=== PATIENT | female | born 1995 | race Caucasian/White ===

== ENCOUNTER 2022-10-28 12:37 | Outpatient (REF) | payer MEDICAID, SELFPAY | END 2022-10-28 12:38 | disposition home or self-care (01) | LOC: HO.MDS 12:37 | PROVIDERS: Visit Provider Internal Medicine | DX: O99.013 Anemia complicating pregnancy, third trimester (principal); D50.9 Iron deficiency anemia, unspecified; Z3A.28 28 weeks gestation of pregnancy | CPT/HCPCS: 96365 ==

== ENCOUNTER 2022-11-04 11:59 | Outpatient (REF) | payer MEDICAID, SELFPAY | END 2022-11-04 12:00 | disposition home or self-care (01) | LOC: HO.MDS 11:59 | PROVIDERS: Visit Provider Internal Medicine | DX: O99.013 Anemia complicating pregnancy, third trimester (principal); D50.9 Iron deficiency anemia, unspecified; Z3A.28 28 weeks gestation of pregnancy | CPT/HCPCS: 96365; J1756 ==

== ENCOUNTER 2022-11-11 14:20 | Outpatient (REF) | payer MEDICAID, SELFPAY | END 2022-11-11 14:21 | disposition home or self-care (01) | LOC: HO.MDS 14:20 | PROVIDERS: Visit Provider Internal Medicine | DX: O99.013 Anemia complicating pregnancy, third trimester (principal); D50.9 Iron deficiency anemia, unspecified; Z3A.29 29 weeks gestation of pregnancy | CPT/HCPCS: 96365; J1756 ==

== ENCOUNTER 2022-11-15 07:09 | Outpatient (REF) | payer MEDICAID, SELFPAY | END 2022-11-15 07:10 | disposition home or self-care (01) | LOC: HO.MDS 07:09 | PROVIDERS: Visit Provider Internal Medicine | DX: O99.013 Anemia complicating pregnancy, third trimester (principal); D50.9 Iron deficiency anemia, unspecified; Z3A.00 Weeks of gestation of pregnancy not specified | CPT/HCPCS: 96365; J1756 ==

== ENCOUNTER 2022-11-23 07:30 | Outpatient (REF) | payer MEDICAID, SELFPAY | END 2022-11-23 07:31 | disposition home or self-care (01) | LOC: HO.MDS 07:30 | PROVIDERS: Visit Provider Internal Medicine | DX: O99.013 Anemia complicating pregnancy, third trimester (principal); D50.9 Iron deficiency anemia, unspecified; Z3A.00 Weeks of gestation of pregnancy not specified | CPT/HCPCS: 96365; J1756 ==

== ENCOUNTER 2022-12-02 14:09 | Outpatient (REF) | payer MEDICAID, SELFPAY | END 2022-12-02 14:10 | disposition home or self-care (01) | LOC: HO.MDS 14:09 | PROVIDERS: Visit Provider Internal Medicine | DX: D50.9 Iron deficiency anemia, unspecified (principal) | CPT/HCPCS: 96365; J1756 ==

== ENCOUNTER 2022-12-15 14:00 | Outpatient (REF) | payer MEDICAID, SELFPAY | END 2022-12-15 14:01 | disposition home or self-care (01) | LOC: HO.MDS 14:00 | PROVIDERS: Visit Provider Internal Medicine | DX: O99.013 Anemia complicating pregnancy, third trimester (principal); D50.9 Iron deficiency anemia, unspecified; Z3A.00 Weeks of gestation of pregnancy not specified | CPT/HCPCS: 96365; J2916 ==

== ENCOUNTER 2022-12-21 07:02 | Outpatient (REF) | payer MEDICAID, SELFPAY | END 2022-12-21 07:03 | disposition home or self-care (01) | LOC: HO.MDS 07:02 | PROVIDERS: Visit Provider Internal Medicine | DX: O99.013 Anemia complicating pregnancy, third trimester (principal); D50.9 Iron deficiency anemia, unspecified; Z3A.00 Weeks of gestation of pregnancy not specified | CPT/HCPCS: 96365; J2916 ==

== ENCOUNTER 2025-06-10 00:08 | Emergency (ER) | payer OTHER, SELFPAY ==
[2025-06-10 00:14] VITALS: BP 103/50; BP 128/60; PULSE 60; PULSE 81; RESP 16; TEMP 36.9; O2SAT 99; BMI 24.2
--- OUTSIDE RECORDS SUMMARY | 2025-06-10 06:06 | XMS_ITS | Clinical Summary ---
Author Organization [employer] Address [address] [place] [address] 7 [place] [address] Care Team Providers Care District Branch Manager Name Role Phone Unavailable Primary Care Provider Unavailabl e Allergies No known active allergies Medications * This document contains information received from the source organization and may not represent a complete record from that organization. cholecalciferol ( Vitamin D3) 50 MCG (1999) capsule daily. 02/10/2022 Active omeprazole (PriLOSEC) [address] capsule TAKE 1 CAPSULE BY MOUTH EVERYDAY AT BEDTIME 08/05/2022 Active propranolol (Inderal) 10 MG tablet twice a day. 02/04/2022 Active Active Problems Problem Noted Date Diagnosed Date Cyclic vomiting syndrome 02/04/2022 023 Generalized anxiety disorder 02/04/202209/2023 Postural kyphosis 02/04/2022 08/16/2023 Social History Tobacco Use Types Packs/Day Years Used Date Smoking Tobacco: Never Smokeless Tobacco: Never Tobacco Cessation:Counseling Given: Yes Comments:08/19/23 Comments Unknown Sex and Gender Information Value Date Recorded Sex Assigned at Unknown 04/27/2023 5:26 PM EDT Legal Sex Female 6:23 PM EDT Gender Identity Female 09/02/2022 6:23 PM EDT Sexual Orientation Straight 09/02/2022 6: 23 PM EDT Last Filed Vital Signs Vital Sign Reading Time Taken Comments Blood Pressure 112/84 08/19/2023 10:45 AM EDT Pulse 92 08/19/2023 10:45 AM EDT Temperature 36 C (96.8 F) 08/19/2023 10:45 AM EDT Respiratory Rate - - Oxygen Saturation 99% 08/19/2023 10:45 AM EDT Inhaled Oxygen Concentration - - Weight 51.3 kg (113 lb) 08/19/2023 10:45 AM EDT Height 161 cm (5' 3.38 ) 06/30/2022 2:24 PM EDT Body Mass Index 19.78 06/30/2022 2:24 PM EDT Plan of Treatment Health Maintenance Due Date Last Done Comments Depression Screening 1995 HIV Screening 1995 SDOH Screening 1995 Disability Screening 1995 Alcohol/Substance Use Screening 2007 Family Planning (PISQ) 2010 HPV Vaccines (1 - 3-dose series) 2010 Hepatitis C Screening 2013 DTaP/Tdap/Td Vaccines (1 - Tdap) 2014 Hepatitis B Vaccines (1 of 3 - 19+ 3-dose series) 2014 Pap Smear 2016 COVID-19 Vaccine (1 - 2023-2 5 season) 2024 Tobacco Screening 08/19/2024 08/19/2023 Influenza Vaccine (#1) 2025 Zoster Vaccines (1 of 2) 2045 RSV Patients and Pa tients Aged 60 years or older (1 - 1-dose 75+ series) 2070 HIB Vaccines Aged Out No longer eligi ble based on patient's age to complete this topic Hepatitis A Vaccines Aged Out No long er eligible based on patient's age to complete this topic IPV Vaccines Aged Out No longer eligi ble based on patient's age to complete this topic Meningococcal B Vaccine Aged Out No l onger eligible based on patient's age to complete this topic Meningococcal Vaccine Aged Out No pramod alaina eligible based on patient's age to complete this topic Pneumococcal Vaccine: Pediat rics (0 to 5 Years) and At-Risk Patients (6 to 49) Years Aged Out No longer eligi ble based on patient's age to complete this topic RSV under 20 months Aged Out No longe r eligible based on patient's age to complete this topic Rotavirus Vaccines Aged Out No longer eligible based on patient's age to complete this topic Insurance [facility] C3 * Guarantor: Rupinder Sarmiento Account Type Relation to Patient Date of Phone Billing Address Dental Self
[2025-06-10 06:07] VITALS: BP 109/56; PULSE 84; RESP 20; TEMP 36.4; O2SAT 100
--- NOTE | 2025-06-10 07:42 | ED.BACK ---
HPI - Back Pain/Injury General Chief Complaint: Back Pain/Injury Stated Complaint: BACK SPASMS Time Seen by Provider: 06/10/25 07:03 Source: patient and RN notes reviewed Mode of arrival: EMS Limitations: no limitations History of Present Illness ED Provider: Harvey Simon PA-C HPI Narrative: 29-year-old female with medical history of iron deficient anemia, kyphosis, scoliosis, presents to the ED due to 3 days of bilateral lumbar back spasms. Patient states back pain started about 3 days ago, was very mild, has been progressively worsening over the last 3 days. States last night she is getting ready for bed putting pajamas on when she had difficult time lifting her legs up and putting on pajama pants, getting into bed. Patient states the pain is a dull ache, which is worse with twisting movements, positioning, walking. Patient has history of kyphosis and scoliosis, has frequent back spasm, but states this is the worse her muscles have ever ?seized up? patient states back pain radiates down the left leg to mid posterior thigh. Patient reports taking ibuprofen and Tylenol at midnight last night without effect. Patient denies fever, chills, saddle paresthesias, bowel/bladder incontinence, no urinary symptoms, black/tarry stools, nausea, vomiting Related Data Home Medications ?Medication ?Instructions ?Recorded ?Confirmed ferrous sulfate 105 mg-C 500 1 tab PO DAILY 10/28/22 12/12/22 mg-folic acid 800 mcg tablet,extend.rel omeprazole 20 mg tablet,delayed 20 mg PO DAILY 10/28/22 03/13/23 release Previous Rx's ?Medication ?Instructions ?Recorded cyclobenzaprine 5 mg tablet 5 mg PO TID PRN muscle spasm 4 06/10/25 days #12 tabs prednisone 20 mg tablet 40 mg (2 x 20 mg) PO DAILY 4 days 06/10/25 #8 tabs Allergies Allergy/AdvReac Type Severity Reaction Status Date / Time No Known Allergies Allergy Verified 06/10/25 00:29 Review of Systems Review of Systems: [facility] Past Medical History Surgical History [place] teeth extracted Family History Family History Maternal Aunt Breast cancer Maternal Aunt Breast cancer Paternal Grandfather Cancer Social History Social History Household Members: Spouse and Children Housing: Apartment Are you a primary administrator health care facility to a significant other at home: No Do you presently have visiting nurse or other home services: No Patient Tobacco Use Status: Never used Tobacco Smoked in Last 30 Days: No Use of substances other than those prescribed or required for medical reasons: Yes Substance Use Type: Marijuana Advance Directives: No Advance Directives Information Provided: Yes Do you have a plan to hurt others: No Plan service: No Current occupational status: unemployed Physical Exam Vital Signs: Vital Signs: Last Vital Signs Temp 97.5 F 06/10/25 09:20 Pulse 77 06/10/25 09:20 Resp 16 06/10/25 09:20 BP 121/68 06/10/25 09:20 Pulse Ox 100 06/10/25 09:20 O2 Del Method Room Air 06/10/25 09:20 BMI result Body Mass Index 24.2 GENERAL APPEARANCE: ?AxOx4, generally well-appearing, no acute distress. HEENT: ?NC, AT. MMM. EOMI, clear conjunctiva, oropharynx clear. NECK: ?Supple without lymphadenopathy.? No stiffness or restricted ROM. HEART:? Normal rate and regular rhythm, normal S1/S1, no m/r/g LUNGS:? CTAB, moving air well. No crackles or wheezes are heard. ABDOMEN: ?Soft, nontender, nondistended with good bowel sounds heard. BACK: No CVAT, no obvious deformity. TTP of bilateral lumbar paraspinal muscles, no midline spinal tenderness, no overlying skin changes, full ROM intact, straight leg test positive bilaterally, patient able to ambulate without ataxic gait, or abnormalities. EXTREMITIES: ?Without cyanosis, clubbing or edema. NEUROLOGICAL: ?Grossly nonfocal. Alert and oriented, moving all 4 extremities. Observed to ambulate with normal gait. Skin: ?Warm and dry without any rash. Medications Administered Discontinued Medications Generic Name Dose Route Start Last Admin Trade Name Freq PRN Reason Stop Dose Admin Acetaminophen 975 mg 06/10/25 07:42 06/10/25 07:55 Acetaminophen 325 Mg Tablet PO 06/10/25 07:43 975 mg ONCE ONE Administration Ketorolac Tromethamine 15 mg 06/10/25 07:42 06/10/25 07:55 Ketorolac Tromethamine 15 Mg/Ml Vial IM 06/10/25 07:43 15 mg ONCE ONE Administration Prednisone 40 mg 06/10/25 07:42 06/10/25 07:55 Prednisone 20 Mg Tablet PO 06/10/25 07:43 40 mg ONCE ONE Administration Medical Decision Making Medical Decision Making MDM Narrative: 29-year-old female with medical history of iron deficient anemia, kyphosis, scoliosis, presents to the ED due to 3 days of bilateral lumbar back spasms. Patient states back pain started about 3 days ago, was very mild, has been progressively worsening over the last 3 days. States last night she is getting ready for bed putting pajamas on when she had difficult time lifting her legs up and putting on pajama pants, getting into bed. Patient states the pain is a dull ache, which is worse with twisting movements, positioning, walking. Patient has history of kyphosis and scoliosis, has frequent back spasm, but states this is the worse her muscles have ever ?seized up? patient states back pain radiates down the left leg to mid posterior thigh. Patient reports taking ibuprofen and Tylenol at midnight last night without effect. Patient denies fever, chills, saddle paresthesias, bowel/bladder incontinence VSS, BP 121/60, pulse rate 77 beats per minute, respiratory rate of 16 breaths per minute, afebrile with oral temp of 97.5?, O2 saturation 100% on room air. . Physical exam reveals bilateral tenderness of the lumbar paraspinal muscles, without midline spinal tenderness, positive bilateral straight leg test, full ROM intact. Patient without saddle anesthesia, bowel/bladder incontinence- less likely cauda equina. Patient without history of IV drug use, afebrile, nontoxic-appearing, ROM intact- less likely SEA UA negative for blood or infection. Patient able to ambulate, patient with significant tenderness over right lumbar paraspinal muscles, SI joint. At this time I believe patient has exacerbation of lumbar radiculopathy, patient medicated with 40 mg prednisone, 15 mg IM ketorolac, 975 mg Tylenol patient states pain has decreased significantly. We will discharge home with 4 day course of 40 mg prednisone, Flexeril, and counseled patient to use Tylenol/ibuprofen and heating packs for pain management. Patient without PCP follow up, we will refer to [facility] primary care. Counseled patient on strict return precautions. Differential Diagnosis Differential Diagnoses: The differential diagnosis associated with the presentation includes Cauda equina SEA Lumbar strain Lumbar radiculopathy Admission/Observation Consideration of admission/observation: Escalation of care including admission/observation considered Lab Data MDM Lab Attestation statement: I reviewed the patient's lab results. Labs: Lab Results 06/10/25 Range/Units 08:55 Urine Color Yellow Urine Appearance Clear Urine pH 7.0 (5.0-9.0) Ur Specific [place] 1.010 (1.005-1.025) Urine Protein Negative (Neg-Trace) mg/dL Urine Glucose (UA) Negative (Negative) mg/dL Urine Ketones Negative (Negative) mg/dL Urine Blood Negative (Negative) Urine Nitrite Negative (Negative) Ur Leukocyte Esterase Negative (Negative) External Record Review External record reviewed: Inpatient record, Office record and Outpatient record Discharge Plan Discharge Clinical Impression: Lumbar radiculopathy Patient Disposition: Home, Self-Care Instructions: Acute Low Back Pain (ED), Lumbar Radiculopathy (ED) Additional Instructions: You were evaluated in the ED today due to lumbar back pain. Your physical exam revealed pain of the muscles along the spine of your lower back, without midline spinal tenderness. Your urine was negative for blood or infection. You were medicated in the department with 975 mg of Tylenol, 15 mg of an intramuscular injection of ketorolac which is a strong NSAID, and 40 mg of prednisone which is a steroid to treat inflammation which you stated had good effect on your pain. You will be prescribed a 4 day course of 40 mg prednisone, and a 4 day course of Flexeril which is a muscle relaxer to help manage the pain of lumbar radiculopathy. Additionally you can take 500 mg of Tylenol, 400 mg of ibuprofen every 6 hours for pain management, I encourage you to use heating packs on the lumbar back as this can ease pain. I placed referrals for you for primary care, you have to call their office they will not call you. Please return to the emergency department if you develop fevers over 100.4?, chills, worsening back pain, difficulty walking, pins and needle sensation of your inner thighs, episodes of bowel/urinary incontinence, or any other new/worsening/concerning symptoms. Prescriptions: New prednisone 20 mg tablet 40 mg PO DAILY 4 Days Qty: 8 0RF cyclobenzaprine 5 mg tablet 5 mg PO TID PRN (Reason: muscle spasm) 4 Days Qty: 12 0RF No Action ferrous [id number] acid 105 mg iron- 500 mg-800 mcg Tablet Extended Release 1 tab PO DAILY Rx Instructions: administer on an empty stomach omeprazole 20 mg Tablet,Delayed Release (Dr/Ec) 20 mg PO DAILY Print Language: Icelandic
[2025-06-10 07:56] VITALS: BP 99/53; PULSE 67; RESP 18; O2SAT 100
[2025-06-10 09:08] LABS: Appearance Urine Clear; Glucose Urine UA Negative (Negative); PH 7.0 (5.0-9.0); Specific Gravity - Urine 1.010 (1.005-1.025)
[2025-06-10 09:20] VITALS: BP 121/68; PULSE 77; RESP 16; TEMP 36.4; O2SAT 100
[2025-06-10 09:33] VITALS: BP 121/68; PULSE 77; RESP 16; TEMP 36.4; O2SAT 100
== END 2025-06-10 09:34 | disposition home or self-care (01) ==
PROVIDERS: Emergency Provider Emergency Medicine
DX: M54.16 Radiculopathy, lumbar region (principal); R25.2 Cramp and spasm; M40.209 Unspecified kyphosis, site unspecified
CPT/HCPCS: 81003; 96372; 99284; J1885

== ENCOUNTER 2025-08-13 11:19 | Outpatient (AMB) | payer OTHER, SELFPAY ==
--- NOTE | 2025-08-13 10:58 | MHC.PC.OV ---
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 PRN R wrist pain. Need for use- indefinite omeprazole 40 mg PO DAILY Tobacco use date assessed: 08/13/25 Dental Screening Dental Screen Date: 08/13/25 Did you have a dental visit in the last 12 months?: Yes Did you have a dental problem in the last 6 months where you did not have access to dental care?: No Was dental information given to patient?: Patient has dentist HPI HPI Comments History of Present Illness Details 30-year-old female with history of kyphoscoliosis, cyclic vomiting syndrome, migraines, ADHD, depression with anxiety, hiatal hernia, iron-deficiency anemia during presenting to the office today for management of chronic conditions and to establish care. She lives at home with her and 2 children. 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 Does have a bachelor's degree in psychology and may consider additional education in the future as her children are older. She currently drinks alcohol several times weekly, about 1-2 alcoholic beverages in the session. She reports she does occasionally smoke cigarettes. Smokes cannabis. No illicit drug use. She is not currently exercising regularly though does go for walks with her children. Not always following a healthy diet. She has not been seen by a primary care provider since her middle school director. Hiatal hernia/GERD- s/p EGD about 10 years ago in [place]. Has been managing with omeprazole since then. However, more recently has required increased dosages of omeprazole, up to 2-3 capsules daily. No dysphagia, globus sensation, unintentional weight loss Kyphoscoliosis-cervical, thoracic, lumbar spine-brace as a child for about 1 year through [facility]. Still has occasional cervical and lumbar back pain/spasm which have required the use of cyclobenzaprine and prednisone the past. ?Possible history of spina bifida, pt uncertain, not following with neuro. No spasticity Cyclic vomiting syndrome/migraines-thought to be related to hormone disruption or extreme stress. Has been going on since childhood. Has been told it is due to cannabis but has been ongoing much longer than cannabis use. She states she did also quit marijuana for several months without any improvement in symptoms. Now managed with IUD. ADHD/depression/anxiety-previously treated with Adderall from age [age]. Now managing mood and ADHD conservatively. She is considering returning to counseling. Not interested in medication at this time. PHQ-9 score 6, poly 7 score 3. No SI/HI. Still does struggle with over thinking and intrusive thoughts but this does sometimes limit her from going out of the house with her children as she occasionally gets overwhelmed Concerns: As above Pain in the right thumb longstanding. Concerned for ?mother's thumb?. It is exacerbated with lifting her children. 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 Referred to credit review manager for consideration of early mammograms versus genetic testing if qualifies Colonoscopies to start at age 45 Referred for skin exam given extensive skin coverage with freckles Has not been to a doctor in many years Due for dental Reviewed past medical, surgical, social, family history ROS: General: No fevers, malaise, unintentional weight loss HEENT: No blurred vision, diplopia. No sore throat, nasal congestion, rhinorrhea, sinus pain, ear pain. No hearing loss Neck - no adenopathy Cardiovascular: No chest pain, palpitations, or leg edema Respiratory: No shortness of breath, wheezing, cough Breast: No pain, palpable lumps, nipple inversion GI: No dysphagia, odynophagia, globus sensation. No abdominal pain, nausea, vomiting, diarrhea, constipation, melena, hematochezia : No dysuria, hematuria, increased urinary frequency, decreased urinary output. MEDICAL SERVICES MANAGER: No abn vaginal bleeding or discharge MSK: No myalgia, back pain, arthralgias Neuro: No headaches, weakness, paresthesias Psych: no depression/anxiery. No AH/VH. No SI/HI Skin: No rashes or lesions EXAM: Constitutional - Awake and Alert, No apparent distress Eyes - PERRLA, EOMI. Anicteric Ears - external ears normal, canals clear, TMs intact and pearly savage with good cone of light Nose- septum midline, nares clear, no sinus tenderness Mouth/throat- mucosa moist, tongue and uvula midline, no erythema/edema or tonsillar adenopathy. Neck-trachea midline, thyroid symmetric without palpable nodules, no adenopathy Cardiovascular - S1S2, RRR, No edema Respiratory - Normal lung expansion, Normal respiratory effort, No respiratory distress, CTA bilaterally Breast - symmetric. No masses or palpable axillary lymph nodes. No tenderness to palpation. No erythema, warmth, dimpled skin. No nipple inversion or drainage Gastrointestinal - NT / ND; +BS; No rebound or guarding - No CVA tenderness Extremities - no calf tenderness bilaterally, no swelling Musculoskeletal - Normal inspection, normal ROM Skin - Warm/Dry, no concerning lesions Neurological - Alert & oriented x3, CN II-XII in tact, 5/5 strength BUE and BLE, 2+ patellar reflexes, sensation intact Psychological - Appropriate affect [facility] Medical History FH: breast cancer Generalized anxiety disorder ADHD GERD (gastroesophageal reflux disease) Hiatal hernia Scoliosis/kyphoscoliosis Chronic hip pain Surgical History History of esophagogastroduodenoscopy (EGD) [place] teeth extracted Family History Maternal Aunt Breast cancer Maternal Aunt Breast cancer Paternal Grandfather Colon cancer Mother Liver failure Cirrhosis Alcoholic Diabetes Father Diabetes Social History Household Members: Spouse and Children Housing: Apartment Are you a primary inspector health care facilities to a significant other at home: No Do you presently have visiting nurse or other home services: No Patient Tobacco Use Status: Current someday Tobacco user Tobacco use type: Cigarette e-Cigarette/Vaping Use: Currently Using Substance Use Type: Marijuana service: No Current occupational status: other 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 1. Little interest or pleasure in doing things: several days 2. Feeling down, depressed, or hopeless: not at all 3. Trouble falling or staying asleep, or sleeping too much: several days 4. Feeling tired or having little energy: more than half the days 5. Poor appetite or overeating: not at all 6. Feeling bad about yourself - or that you are a failure or have let yourself or your family down: not at all 7. Trouble concentrating on things, such as reading the newspaper or watching television: more than half the days 8. Moving or speaking so slowly that other people could have noticed. Or the opposite - being so fidgety or restless that you have been moving around a lot more than usual: not at all 9. Thoughts that you would be better off or of hurting yourself in some way: not at all Total score: 6 Depression Screening Interpretation: Positive Depression Screening Done: Yes 94375 - PHQ-9 Billing: Yes Source: Developed by Drs. Jimmie Quiles, Ally Gaffney, Lon Myers and colleagues, with an educational sunday from [employer]. Thrive Questionnaire I am a: Patient What is your living situation today?: I have a steady place to live Within the past 12 months, did the food you bought not last and you didn't have the money to get more?: Never true Within the past 12 months, did you worry whether your food would run out before you got money to buy more?: Never true Do you have trouble paying for medicines?: No Do you have trouble getting transportation to medical appointments?: No Do you have trouble paying your heating and electricity bill?: No Do you have trouble taking care of your child, family member or friend?: No Do you have trouble with day-to-day activities such as bathing, preparing meals, shopping, managing finances, etc.?: No Are you currently unemployed and looking for a job?: No Are you interested in more education?: No Please select the resources that you would like help with: None Currently or been in a relationship where the following occur: I choose not to answer THRIVE Score: 0 AUDIT C Alcohol Use Questionnaire (AUDIT-C) 1. How often do you have a drink containing alcohol?: 2-4 times a month 2. How many drinks containing alcohol do you have on a typical day when you are drinking?: 1 or 2 3. How often do you have six or more drinks on one occasion?: Never Total Score: 2 POLY-7 AMB Questionnaire POLY-7 Feeling nervous, anxious, or on edge: 1 = Several days Not being able to stop or control worryin = Not at all Worrying too much about different things: 0 = Not at all Trouble relaxin = More than half the days Being so restless that it is hard to sit still: 0 = Not at all Becoming easily annoyed or irritable: 1 = Several days Feeling afraid as if something awful might happen: 0 = Not at all Total POLY-7 score (0-4 normal; 5-9 mild; 10-14 moderate; 15-21 severe): 4 Source: Developed by Drs. Jimmie Quiles, Ally Gaffney, Lon Myers and colleagues, with an educational sunday from [employer]. POLY-7 Assessment Billing POLY-7 Assessment Tool: POLY-7 Assessment 40820 Physical exam (Primary Care) Vital Signs: Last Vital Signs Temp 97.1 F 08/13/25 11:22 Pulse 86 08/13/25 11:22 Resp 16 08/13/25 11:22 BP 120/82 08/13/25 11:22 Pulse Ox 96 08/13/25 11:22 Oxygen Delivery Method Room Air 08/13/25 11:22 BMI result Body Mass Index 24.8 Tobacco/Smoking Status: Tobacco use Status Tobacco use date assessed 08/13/25 08/13/25 10:59 Patient Tobacco Use Status Current someday Tobacco 08/13/25 11:27 Tobacco use type Cigarette 08/13/25 11:27 e-Cigarette/Vaping Use Currently Using 08/13/25 11:27 Depression Screening Interpretation: Positive Currently or been in a relationship where the following occur: I choose not to answer Coding Level of Care Code New Pt Prev Care 18-39yr(06295 Diagnoses Encounter for routine history and physical examination Z00.00 De Quervain's tenosynovitis, right M65.4 Hiatal hernia K44.9 Additional Codes POLY-7 Assessment Billing - POLY-7 Assessment Tool: POLY-7 Assessment 92522 ([id number]) PHQ-9 - 90333 - PHQ-9 Billing: Yes ([id number]) Assessment & Plan Assessment & Plan (1) Encounter for routine history and physical examination: Code(s): Z00.00 - Encounter for general adult medical examination without abnormal findings Plan: 30-year-old female presenting for annual exam and to establish care. Plan as below (2) De Quervain's tenosynovitis, right: Code(s): M65.4 - Radial styloid tenosynovitis [de Quervain] Category: Medical Plan: Thumb spica ordered as needed. Continue ibuprofen and ice. Gentle stretches (3) Hiatal hernia: Code(s): K44.9 - Diaphragmatic hernia without obstruction or gangrene Category: Medical Plan: Worsening GERD symptoms. No alarm symptoms. Increase omeprazole to 40 mg every morning. Avoid triggering foods. Plan Routine screening labs as ordered below Referred for cervical cancer screening/annual credit review manager exam. Mammograms at discretion of credit review manager Colonoscopies to started age 45 Referred for skin exam Schedule eye exam Scheduled dental exam-twice yearly Wear seat belt in car Recommend regular exercise and healthy diet Follow up in 1 year for annual exam Orders: Orders Basic Metabolic Panel Today D50.9 - Iron deficiency anemia, unspecified, Z00.00 - Encounter for general adult medical examination without abnormal findings Lipid Panel Today D50.9 - Iron deficiency anemia, unspecified, Z00.00 - Encounter for general adult medical examination without abnormal findings Liver Panel Today D50.9 - Iron deficiency anemia, unspecified, Z00.00 - Encounter for general adult medical examination without abnormal findings TSH reflex Free T4 Today D50.9 - Iron deficiency anemia, unspecified, Z00.00 - Encounter for general adult medical examination without abnormal findings Vitamin D 25-OH Total Today D50.9 - Iron deficiency anemia, unspecified, Z00.00 - Encounter for general adult medical examination without abnormal findings Partial Thromboplastin Time Today R23.3 - Spontaneous ecchymoses Complete Blood Count Auto Diff Today D50.9 - Iron deficiency anemia, unspecified, Z00.00 - Encounter for general adult medical examination without abnormal findings Prothrombin Time INR Today R23.3 - Spontaneous ecchymoses Referrals Dermatology Referral R23.3 - Spontaneous ecchymoses, Z12.83 - Encounter for screening for malignant neoplasm of skin Gastroenterology Referral K21.9 - Gastro-esophageal reflux disease without esophagitis, K44.9 - Diaphragmatic hernia without obstruction or gangrene ADVENTURE EDUCATION TEACHER Referral D50.9 - Iron deficiency anemia, unspecified, Z00.00 - Encounter for general adult medical examination without abnormal findings, Z12.4 - Encounter for screening for malignant neoplasm of cervix Medications: New arm brace (Wrist Brace) Thumb spica. PRN R wrist pain. Need for use- indefinite 1 ea 0RF M65.4 - Radial styloid tenosynovitis [de Quervain] omeprazole 40 mg PO DAILY 90 caps 1RF Discontinued prednisone Discontinued Reason: Patient Completed Course 40 mg (2 x 20 mg) PO DAILY 4 days 8 tabs 0RF Patient Instructions: Check [employer] for counselors
[2025-08-13 11:22] VITALS: BP 120/82; PULSE 86; RESP 16; TEMP 36.2; O2SAT 96; BMI 24.8
== END 2025-08-13 12:19 | disposition home or self-care (01) ==
LOC: HO.HMCHD 11:20
PROVIDERS: Visit Provider Physician Assistant
DX: Z00.00 Encounter for general adult medical examination without abnormal findings (principal); M65.4 Radial styloid tenosynovitis [de Quervain]; K44.9 Diaphragmatic hernia without obstruction or gangrene

== ENCOUNTER 2025-08-13 12:29 | Outpatient (REF) | payer OTHER, SELFPAY ==
[2025-08-13 13:51] LABS: MANUAL DIFF FLAG NO
[2025-08-13 13:56] LABS: Hematocrit 38.6 % (37.0-47.0); Hemoglobin 12.2 g/dl (12.0-16.0); Imm Gran Abs Auto 0.04 X10*3/uL (0.00-0.03); Imm Gran Pct Auto 0.3 % (0.0-0.4); Lymphocytes Absolute Auto 2.7 X10*3/uL (1.2-4.9); Mean Corpuscular HGB Conc 31.6 g/dl (31.0-35.0); Mean Corpuscular Hemoglobin 27.5 pg (27.0-33.0); Mean Corpuscular Volume 86.9 fL (80.0-98.0); NRBC Abs Auto 0.000 X10*3/uL (0.0-0.012); NRBC Pct Auto 0.0 /100WBC (0.0-0.2); Platelet Count 257 X10*3/uL (160-400); Red Blood Count 4.44 X10*6/uL (4.20-5.50); White Blood Count 12.8 X10*3/uL (4.8-10.8)
[2025-08-13 14:15] LABS: INTERNATIONAL NORM RATIO 0.9 (0.9-1.1); Prothrombin Time 10.0 SEC (10.9-12.4)
[2025-08-13 14:18] LABS: Partial Thromboplastin Time 29.6 SEC (26.7-34.1)
[2025-08-13 14:26] LABS: Alanine Aminotransferase 14 U/L (0-31); Albumin Level 4.7 g/dL (3.5-5.0); Alkaline Phosphatase 60 U/L (39-117); Anion Gap 9 (12-20); Aspartate Amino Transferase 18 U/L (5-31); Blood Urea Nitrogen 8 mg/dL (9-16); Calcium 9.3 mg/dL (8.4-10.2); Carbon Dioxide 28 mmol/L (22-29); Chloride 109 mmol/L (96-108); Cholesterol 204 mg/dL (<200); Estimated Glomerular Filt Rate > 60; HDL Cholesterol 50 mg/dL (>40); Potassium 4.1 mmol/L (3.3-5.1); Sodium 142 mmol/L (135-145); Total Protein 7.5 g/dL (6.5-8.0); Triglycerides 78 mg/dL (<150)
== END 2025-08-13 12:30 | disposition home or self-care (01) ==
LOC: HO.10HDL 12:29
PROVIDERS: Visit Provider Physician Assistant
DX: Z00.00 Encounter for general adult medical examination without abnormal findings (principal); D50.9 Iron deficiency anemia, unspecified; R23.3 Spontaneous ecchymoses; K21.9 Gastro-esophageal reflux disease without esophagitis; M54.50 Low back pain, unspecified; G43.A0 Cyclical vomiting, in migraine, not intractable; F90.9 Attention-deficit hyperactivity disorder, unspecified type; F32.A Depression, unspecified; F41.9 Anxiety disorder, unspecified; M65.4 Radial styloid tenosynovitis [de Quervain]; K44.9 Diaphragmatic hernia without obstruction or gangrene; F17.210 Nicotine dependence, cigarettes, uncomplicated
CPT/HCPCS: 36415; 80048; 80061; 80076; 82306; 84443; 85025; 85610; 85730; 96127; 99385